=== PATIENT | female | born 1965 | race Caucasian/White ===

== ENCOUNTER → 2020-07-12 | Outpatient (CLI) | payer OTHER, BC ==
[2020-07-14 19:13] LABS: ANA INTERP Positive (.)
== END ==
LOC: ONCLAB 09:37
PROVIDERS: ATTEND Internal Medicine Hematology & Oncology
DX: I81 Portal vein thrombosis (principal)
CPT/HCPCS: 36415; 81270; 86038; 88184; 88185

== ENCOUNTER → 2021-01-01 | Outpatient (CLI) | payer OTHER, BC ==
[~2021-01-01] MED LIST: IOHEXOL 300 MG/ML 100ML VIAL. IV ONE
--- NOTE | 2021-01-02 08:26 | RAD ---
CT ABDOMEN W History: Portal vein thrombosis. Comparison: None. Technique: CT of the abdomen with intravenous contrast. Findings: Lung bases: Clear lungs. No pleural or pericardial effusion. Calcifications of the mitral valve. General abdomen: No ascites. No free air. Liver : There is wedge-shaped hypoenhancement of the peripheral right hepatic lobe involving segments 8, and to a lesser extent 5, 6 and 7. This hypoenhancement appears to be distal to a nonenhancing br anch of the right portal vein, likely right anterior, best appreciated on coronal image 22. The main portal vein as well as the right and left branches at the bifurcation are enhancing however, there is a subtle linear hypodensity within the right portal vein which may represent thrombus material. No d iscrete masses are identified. Gallbladder/Biliary Tree: Normal gallbladder. No intrahepatic or extrahepatic biliary ductal dilatati on. Pancreas: Normal. Spleen: Normal in size and attenuation. Adrenal glands: Normal. Kidneys: No hydronephrosis or hydroureter. There is a 1 cm diameter defect in the posterior cortex of the left kidney with density equal to that of adjacent retroperitoneal fat. Gastrointestinal: Postsurgical changes from gastric bypass. Small fluid and trace air within the excl uded stomach. No evidence of stricture of the jejunojejunostomy. Visualized portions of the colon are unremarkable. Lymph nodes: No lymphadenopathy. Vessels: Unremarkable aorta. Soft tissues: Soft tissue stranding and subcutaneous calcifications at the lower back. Bones: No acute or aggressive lesions. Degenerative disc disease at L5-S1. Impression: 1. Wedge of hypoenhancement within the liver line with nonenhancing branch of the portal vein, likel y right anterior, consistent with history of portal vein thrombosis. No discrete hepatic masses ident ified. 2. Round 1 cm fat density at the posterior cortex of the left kidney may represent sequela of old re nal injury versus angiomyolipoma. 3. Postsurgical features from gastric bypass. ------ Exposure: One or more of the following individualized dose reduction techniques were utilized for thi s examination: 1. Automated exposure control 2. Adjustment of the mA and/or kV according to patient size 3. Use of iterative reconstruction technique. Electronically signed by: Gregorio Lewis MD (01/02/2021 8:24 AM) [facility]
== END ==
LOC: CT 07:55
PROVIDERS: ATTEND Internal Medicine Hematology & Oncology
DX: I81 Portal vein thrombosis (principal)
CPT/HCPCS: 74160; Q9967

== ENCOUNTER → 2021-01-09 | Outpatient (CLI) | payer OTHER, BC | LOC: ONCLAB 10:22 | PROVIDERS: ATTEND Internal Medicine Hematology & Oncology | DX: I81 Portal vein thrombosis (principal) | CPT/HCPCS: 81240; 81241; 85240; 85300; 85302; 85306; 86146; 86147 ==

== ENCOUNTER → 2021-06-19 | Outpatient (CLI) | payer BC, OTHER ==
--- NOTE | 2021-06-19 15:40 | KCIC ---
EXAM: CT abdomen with contrast. HISTORY: Portal vein thrombosis status post anticoagulation. TECHNIQUE: CT of the abdomen was performed after the intravenous administration of iodinated contrast . One or more of the following individualized dose reduction techniques were utilized for this examin ation: 1. Automated exposure control. 2. Adjustment of the mA and/or kV according to patient size. 3. Use of iterative reconstruction technique. COMPARISON: 01/01/2021. FINDINGS: Images of the lung bases reveal no abnormality. Bone windows reveal no suspicious lesions. Previously noted thrombosis of the superior segment of the right portal vein persists. The thrombosed segment is mostly atretic. Some of its distal radicals appear to have reconstructed 2 by collaterali zation. There is mildly decreased perfusion in segment 8 at the site in the region supplied by the th rombosed segment. The middle hepatic vein is hypoattenuating which may be perfusion related or reflec t thrombosis. The caudate lobe is hypertrophic. There is no hepatic surface nodularity. No focal lesions are identi fied. The pancreas, adrenal glands and spleen are unremarkable. A left renal angiomyolipoma measures 2.3 x 1.4 cm and is stable. The right kidney is unremarkable. There are changes of gastric bypass procedure. The excluded portion of the stomach contains some flui d. There is no small bowel obstruction. Stool throughout the colon is consistent with constipation. IMPRESSION: 1. Persistent thrombosis of the superior segment of the right portal vein, which now appears atretic with some reconstitution distally. 2. Hypoattenuation of the middle hepatic vein may be secondary to altered perfusion rather than throm bosis. Sonography could confirm patency of the hepatic veins if this remains unclear. 3. Stable 2.3 cm left renal angiomyolipoma. 4. Fluid within the excluded portion of the stomach. Correlate to exclude a gastric gastric fistula. 5. Correlate for mild constipation. Electronically signed by: Brandyn Simmons MD (06/19/2021 3:37 PM) [id number]
== END ==
LOC: KCIC CT 13:12
PROVIDERS: ATTEND Internal Medicine Hematology & Oncology
DX: I81 Portal vein thrombosis (principal); D17.71 Benign lipomatous neoplasm of kidney; K31.6 Fistula of stomach and duodenum; K59.00 Constipation, unspecified
CPT/HCPCS: 74160; Q9967

== ENCOUNTER → 2021-09-09 | Outpatient (CLI) | payer OTHER ==
--- NOTE | 2021-09-09 12:51 | RAD ---
EXAMINATION: CT abdomen with IV contrast INDICATION:56 years, Female, portal vein thrombosis, follow-up. TECHNIQUE: Axial CT images of the abdomen was obtained. Coronal and sagittal reformatted performed. COMPARISON: 06/19/2021. Exposure: One or more of the following individualized dose reduction techniques were utilized for thi s examination: 1. Automated exposure control 2. Adjustment of the mA and/or kV according to patient size 3. Use of iterative reconstruction technique. FINDINGS: LOWER CHEST: Unremarkable. ABDOMEN: Persistent occlusion of the superior segment right portal vein, associated with parenchymal perfusion changes of the segment 8. Patent but diminutive appearance of the left portal vein with somewhat sma ll size lateral segment of the left hepatic lobe, similar to prior exam. Similar caudate lobe hypertr ophy. Hepatic veins are patent. No suspicious focal hepatic lesion. Gallbladder, biliary ducts, spleen and pancreas are unremarkable. No adrenal nodule. No hydronephrosi s or nephrolithiasis in either kidney. Stable 2.3 cm left renal angiomyolipoma. Post Tea-en-Y gastri c bypass changes. No bowel dilation. Normal caliber abdominal aorta. Mesenteric arteries and main por ngozi vein are patent. Retroaortic left renal vein. No lymphadenopathy in the abdomen by size criteria. No ascites or pneumoperitoneum. MUSCULOSKELETAL STRUCTURES: No acute osseous process. IMPRESSION: 1. Persistent occlusion of the superior segment right portal vein with associated parenchymal perfusi on changes of the segment VIII. 2. Similar other chronic/incidental findings, as described above. Electronically signed by: Clifton Barker MD (09/09/2021 12:48 PM) [facility]
== END ==
LOC: CT 09:13
PROVIDERS: ATTEND Internal Medicine Hematology & Oncology
DX: I81 Portal vein thrombosis (principal); D17.71 Benign lipomatous neoplasm of kidney; Z98.84 Bariatric surgery status
CPT/HCPCS: 74160; Q9967